=== PATIENT | male | born 1980 | race Caucasian/White ===

== ENCOUNTER 2018-06-30 07:51 | Emergency (ER) | payer SELFPAY ==
[2018-06-30 07:54] VITALS: BP 159/79; PULSE 67; RESP 18; TEMP 36.4; O2SAT 99; BMI 32.5
--- NOTE | 2018-06-30 08:02 | NURSING ---
NO OLD EKGS
--- NOTE | 2018-06-30 08:09 | EKG12_ITS ---
Test Reason : ARM HEAVINESS Blood Pressure : / mmHG Vent. Rate : 060 BPM Atrial Rate : 060 BPM P-R Int : 178 ms QRS Dur : 094 ms QT Int : 370 ms P-R-T Axes : 052 021 019 degrees QTc Int : 370 ms Normal sinus rhythm Normal ECG Confirmed by AMIE GAGE, BETITO ([id number]), managing editor AGNIESZKA NASH ([id number] on 07/03/2018 11:21:10 AM Referred By: [facility] Confirmed By:BETITO HOLLOWAY MD
--- NOTE | 2018-06-30 08:12 | ED.DCSUM_ITS ---
- ER Visit Summary Date of Service: 06/30/18 Chief Complaint: Panic attack, left arm and leg tingling and heaviness History of Present Illness: The patient is a 38 M who presents with the above symptoms. He states that around 630 this morning he had a panic attack and after that he had symptoms of left arm and leg tingling and heaviness. He states that it is getting better but is not completely resolved. He denies weakness of these extremities. He states he has a recent diagnosis of panic attacks. He was given Ativan to take as needed. He has not taken this for a couple of days. He was also recently started on antihypertensives after his blood pressure was 200 systolic. He had no chest pain or shortness of breath. He denies any headaches or neck pain. He has never had a stroke before previously. Physical Examination: Vital signs reviewed. HEENT exam unremarkable. Heart is regular rate and rhythm without murmurs. Lungs are clear to auscultation. Abdomen is soft and nontender. Extremities reveal no edema. Skin exam normal. Neurologic exam normal. NIH stroke scale is 0. Test Results: Laboratory studies unremarkable except for glucose of 128. EKG is sinus rhythm with no ST changes Emergency Department Course and Treatment: The patient's workup is negative. I do not feel he requires a head CT as his symptoms are gone. I feel this is likely secondary to his panic attack. He has no other strokelike symptoms. He will continue his home medications and will follow up with his primary care physician Treatment Plan: [] Disposition: Discharge Impression: Left-sided paresthesias, anxiety This note was generated with [employer] dictation software. It may contain incorrect words, spelling, and punctuation that were not noted in review of the chart prior to signing ED Disposition - Plan for ED Patient: Referrals: [facility] ,Out of [Primary Care Provider] -
[2018-06-30 08:30] LABS: Absolute Lymphocyte Count 2.02 X10^3/ul (0.83-4.51); Absolute Neutrophil Count 5.4 X10^3/uL (2.0-7.7); Basophil# 0.01 X10^3/uL; Basophil% 0.1 % (0-1); Eosinophil# 0.08 X10^3/uL; Hematocrit 47.1 % (40-54); Hemoglobin 16.1 g/dl (13.0-16.5); Lymphocyte # 2.02 X10^3/ul (4.0); Lymphocyte % 24.9 % (19-41); Mean Corp Hgb Conc 34.2 g/gl (32-36); Mean Corpuscular Hgb 30.8 pg (27.0-32.0); Mean Corpuscular Volume 90.2 fL (80-94); Mean Platelet Vol. 8.7 fl (6.2-12.0); Monocyte# 0.62 X10^3/uL; Monocyte% 7.6 % (0-10); Neutrophil # 5.37 X10^3/uL (2.7-7.7); Neutrophil % 66.3 % (47-70); POSITIVE COUNT NO; POSITIVE DIFFERENTIAL NO; POSITIVE MORPHOLOGY NO; Platelet Count 290 K/mm3 (150-450); RBC Distribution Width CV 12.7 % (11.6-14.6); RBC Distribution Width SD 41.6 fl (35.1-43.9); Red Blood Count 5.22 M/mm3 (4.6-6.2); White Blood Count 8.1 K/mm3 (4.4-11.0)
[2018-06-30 08:49] LABS: ALB/GLOB Ratio 1.1 RATIO (0.9-2.4); AST(SGOT) 19 U/L (15-37); Alanine Aminotransfer ALT/SGPT 35 U/L (16-61); Albumin, Serum 4.2 g/dL (3.2-5.0); Alkaline Phosphatase 69 U/L (45-117); Anion Gap 11 (5-15); BUN 18 mg/dL (7-18); BUN/Creat Ratio 15.8 RATIO (10-20); Calcium,Total 8.9 mg/dL (8.5-10.1); Chloride 104 mmol/L (98-107); Creatinine, Serum 1.14 mg/dL (0.70-1.30); EST Glomerular Filtration Rate 76 mL/min (>60); Est Glom Filt Rate - Afr Amer 92 mL/min (>60); Estimated Creatinine Clearance 96.43 ml/min; Globulin 3.8 g/dL (2.2-4.2); Glucose 128 mg/dL (74-106); Sodium Level 139 mmol/L (136-145)
--- NOTE | 2018-06-30 08:59 | ED.DEP ---
ED Disposition - Plan for ED Patient: Disposition: Home or Assisted Living Instructions: ED Paraesthesias Referrals: [facility],Out of [Primary Care Provider] -
[2018-06-30 09:11] VITALS: BP 138/82; PULSE 73; RESP 16
== END 2018-06-30 09:11 | disposition home or self-care (01) ==
PROVIDERS: Emergency Provider Emergency Medicine; Family Provider Family Medicine
DX: R20.2 Paresthesia of skin (principal); F41.9 Anxiety disorder, unspecified; I10 Essential (primary) hypertension; Z72.0 Tobacco use; Z79.899 Other long term (current) drug therapy
CPT/HCPCS: 80053; 85025; 93005; 99282